=== PATIENT | female | born 1985 | race Caucasian/White ===

== ENCOUNTER 2018-05-26 05:12 | Inpatient (IN) | payer MEDICAID ==
[2018-05-26] MEDS ORDERED: MISOPROSTOL 200 MCG TAB PR ×2 (05:30→12:30)
[2018-05-26] MEDS ORDERED: CARBOPROST 250 MCG INJ IM ×2 (05:30→12:30)
[2018-05-26] MEDS ORDERED: METHYLERGONOVINE 0.2 MG INJ IM ×2 (05:30→12:30)
[2018-05-26] MEDS ORDERED: OXYTOCIN 30 UNITS/LR 500 ML IV ×3 (05:30→12:30)
[2018-05-26 05:51] LABS: ADD MAN DIFF? NO
[2018-05-26 06:06] LABS: BASOPHIL # 0.1 10^3/ul (0.0-0.1); BASOPHILS % 0.7 % (0.0-2.0); EOSINOPHILS # 0.1 10^3/ul (0.0-0.5); EOSINOPHILS % 1.2 % (0.0-7.0); HEMATOCRIT 37.6 % (37.0-47.0); HEMOGLOBIN 13.2 g/dl (12.0-16.0); LYMPHOCYTES # 1.9 10^3/ul (0.8-2.9); LYMPHOCYTES % 22.4 % (15.0-51.0); MEAN CORPUSCULAR HEMOGLOBIN 32.8 pg (29.0-33.0); MEAN CORPUSCULAR HGB CONC 35.1 g/dl (32.0-37.0); MEAN CORPUSCULAR VOLUME 93.5 fl (82.0-101.0); MEAN PLATELET VOLUME 11.3 fl (7.4-10.4); MONOCYTE # 0.5 10^3/ul (0.3-0.9); MONOCYTES % 5.7 % (0.0-11.0); NEUTROPHIL # 5.9 10^3/ul (1.6-7.5); NEUTROPHILS % 69.1 % (39.0-77.0); PLATELET COUNT 143 10^3/UL (140-415); RED BLOOD COUNT 4.02 10^6/ul (4.20-5.40); RED CELL DISTRIBUTION WIDTH 12.1 % (11.5-14.5)
[2018-05-26 06:06] LABS: WHITE BLOOD COUNT 8.6 10^3/ul (4.8-10.8)
[2018-05-26] MEDS: LACTATED RINGER'S 1,000 ML IV ×3 (06:12→15:19)
[2018-05-26 06:32] LABS: INR 0.84; PROTIME 11.6 Sec (11.9-14.9); PT RATIO 0.9
[2018-05-26 06:33] LABS: PARTIAL THROMBOPLASTIN TIME 22.9 Sec (23.0-35.0)
[2018-05-26 07:05] LABS: HEPATITIS B SURFACE ANTIGEN NEGATIVE (NEGATIVE)
[2018-05-26] MEDS ORDERED: morphine SULFATE/PF (10 MG/10 ML) INJ (09:28)
[2018-05-26] MEDS ORDERED: FENTAnyl 50 MCG/ML VIAL (09:29)
[2018-05-26] MEDS ORDERED: PHENYLephrine (100 MCG/ML) 10ML SYG (09:36)
[2018-05-26] MEDS ORDERED: DEXAMETHASONE 4 MG/ML 1 ML INJ (09:39)
[2018-05-26] MEDS ORDERED: ONDANSETRON 4 MG INJ (09:40)
[2018-05-26] MEDS: OXYTOCIN 30 UNITS/LR 500 ML IV (10:53)
[2018-05-26] MEDS ORDERED: ZOLPIDEM 5 MG TAB PO (11:00)
[2018-05-26] MEDS ORDERED: HYDROmorphONE 0.5 MG/0.5 ML SYG IV ×2 (11:00)
[2018-05-26] MEDS ORDERED: ONDANSETRON 4 MG INJ IV (11:00)
[2018-05-26] MEDS ORDERED: NALOXONE (0.4 MG/ML) INJ IV (11:00)
[2018-05-26] MEDS: CEFAZOLIN 2 GM/50 ML (PMX) 50 ML IVPB (11:37)
[2018-05-26] MEDS: DIPHENHYDRAMINE 50 MG INJ IV (11:46)
[2018-05-26] MEDS: KETOROLAC 30 MG INJ IV ×2 (12:01→17:46)
[2018-05-26] MEDS ORDERED: DEXTROSE 5%-LR 1,000 ML IV (12:22)
[2018-05-26] MEDS ORDERED: METHYLERGONOVINE 0.2 MG TAB PO (12:30)
[2018-05-26] MEDS ORDERED: MAGNESIUM HYDROXIDE 30ML CUP PO (12:30)
[2018-05-26] MEDS ORDERED: LANOLIN HPA 1 PKT TOP (12:30)
[2018-05-26] MEDS ORDERED: IBUPROFEN 800 MG TAB PO (14:00)
[2018-05-26 15:42] LABS: RAPID PLASMA REAGIN NONREACTIVE (NR)
[2018-05-26] MEDS: SENNA/DOCUSATE NA (8.6MG/50MG) TAB PO (21:00)
[2018-05-27] MEDS: LACTATED RINGER'S 1,000 ML IV ×2 (00:26→13:25)
[2018-05-27] MEDS: DIPHENHYDRAMINE 50 MG INJ IV ×2 (05:01→05:03)
[2018-05-27] MEDS: SENNA/DOCUSATE NA (8.6MG/50MG) TAB PO ×2 (08:18→21:34)
[2018-05-27] MEDS: KETOROLAC 30 MG INJ IV (08:19)
[2018-05-27 08:26] LABS: ADD MAN DIFF? NO
[2018-05-27 08:36] LABS: BASOPHIL # 0.1 10^3/ul (0.0-0.1); BASOPHILS % 0.4 % (0.0-2.0); EOSINOPHILS % 0.3 % (0.0-7.0); HEMATOCRIT 32.9 % (37.0-47.0); HEMOGLOBIN 11.2 g/dl (12.0-16.0); LYMPHOCYTES # 2.7 10^3/ul (0.8-2.9); LYMPHOCYTES % 23.3 % (15.0-51.0); MEAN CORPUSCULAR HEMOGLOBIN 32.9 pg (29.0-33.0); MEAN CORPUSCULAR VOLUME 96.8 fl (82.0-101.0); MEAN PLATELET VOLUME 11.7 fl (7.4-10.4); MONOCYTE # 0.7 10^3/ul (0.3-0.9); MONOCYTES % 6.3 % (0.0-11.0); NEUTROPHIL # 7.9 10^3/ul (1.6-7.5); NEUTROPHILS % 69.2 % (39.0-77.0); PLATELET COUNT 131 10^3/UL (140-415); RED CELL DISTRIBUTION WIDTH 12.5 % (11.5-14.5)
[2018-05-27 08:36] LABS: WHITE BLOOD COUNT 11.4 10^3/ul (4.8-10.8)
[2018-05-27] MEDS: HYDROCODONE/APAP (5/325) TAB NGT ×2 (11:13→17:58)
[2018-05-27] MEDS: IBUPROFEN 800 MG TAB PO ×2 (13:06→21:34)
[2018-05-27] MEDS: HYDROCODONE/APAP (5/325) TAB GTB ×2 (13:06→21:34)
[2018-05-27] MEDS: INFLUENZA VIRUS VACCINE 0.5 ML (DISPENSING) IM* (14:54)
[2018-05-28] MEDS: HYDROCODONE/APAP (5/325) TAB GTB ×3 (06:08→22:00)
[2018-05-28] MEDS: IBUPROFEN 800 MG TAB PO ×3 (06:08→18:50)
[2018-05-28] MEDS: SENNA/DOCUSATE NA (8.6MG/50MG) TAB PO (10:26)
[2018-05-28] MEDS ORDERED: DIPHTH/TET/ACEL PERTUSS (ADULT) 0.5 ML VIAL IM* (11:00)
[2018-05-29] MEDS: SENNA/DOCUSATE NA (8.6MG/50MG) TAB PO ×2 (00:29→09:23)
[2018-05-29] MEDS: IBUPROFEN 800 MG TAB PO (04:12)
[2018-05-29] MEDS: HYDROCODONE/APAP (5/325) TAB GTB (05:46)
[2018-05-29] MEDS ORDERED: MEASLES,MUMPS,RUBELLA VACCINE INJ SC* (09:00)
[2018-05-29] MEDS ORDERED: DIPHTH/TET/ACEL PERTUSS (ADULT) 0.5 ML VIAL IM* (09:00)
[2018-05-29] MEDS: DIPHTH/TET/ACEL PERTUSS (ADULT) 0.5 ML VIAL IM* (10:58)
== END 2018-05-29 14:12 | disposition home or self-care (01) | DRG 788 ==
LOC: L-D 05:12 → PP1 14:26
PROVIDERS: Obstetrics & Gynecology
PROC: 10D00Z1 Extraction of Products of Conception, Low, Open Approach (ICD-10-PCS; principal; 2018-05-26 07:30)
DX: O34.211 Maternal care for low transverse scar from previous cesarean delivery (principal); O90.81 Anemia of the puerperium; D64.9 Anemia, unspecified; Z3A.39 39 weeks gestation of pregnancy; Z37.0 Single live birth
CPT/HCPCS: 85025; 85610; 85730; 86592; 86850; 86900; 86901; 87340; 90686; 90715; 99464